=== PATIENT | female | born 1940 | race Caucasian/White ===

== ENCOUNTER 2017-02-12 09:20 | Emergency (ER) | payer MEDICARE, OTHER ==
[~2017-02-12] VITALS: Ht 152.4 cm; Wt 71.2 kg
[2017-02-12 09:27] VITALS: BP 189/90
[2017-02-12] MEDS ORDERED: METO25TA3 PO (09:36)
[2017-02-12] MEDS ORDERED: ORE25 PO (09:36)
[2017-02-12] MEDS ORDERED: MONT10TA35 PO (09:36)
[2017-02-12] MEDS ORDERED: ENAL20TA31 PO (09:36)
[2017-02-12] MEDS ORDERED: ATOR20TA40 PO (09:36)
[2017-02-12] MEDS ORDERED: METF850T37 PO (09:36)
--- NOTE | 2017-02-12 09:38 | NUR ---
Justino blum in ED - 02/12/17 at 0949 by [email or web address] Patient ambulated to bed 4 with family. RN evaluating patient at bedside.
--- NOTE | 2017-02-12 09:38 | NUR ---
Patient ambulated to bed 5 with family. RN evaluating patient at bedside.
--- NOTE | 2017-02-12 09:39 | NUR ---
PT AMBUALTE TO RESTROOM ASSISTED BY DAUGHTER FOR URINE SAMPLE.
--- NOTE | 2017-02-12 09:56 | NUR ---
PT BIB DAUGHTER FOR 06/06 RIGHT SIDED ABD PAIN STARTED YESTERDAY.PAIN IS AGGRAVATED BY BREATHING;DENIES V/D/FEVER. STS FEELS NAUSEA.HX HTN, DM, HIGH CHOLESTEROL. SKIN IS PINK/WARM/DRY; AAOX4 WITH EVEN AND STEADY GAIT; LUNGS CLEAR BL; HR EVEN AND REGULAR;DENIES ANY CP, SOB, OR COUGH AT THIS TIME; PATIENT STATES PAIN OF 10 AT THIS TIME; PATIENT POSITIONED FOR COMFORT; HOB ELEVATED; BEDRAILS UP X2; BED DOWN. ER MD WILL BE NOTIFY OF PT STATUS.
--- NOTE | 2017-02-12 10:01 | NUR ---
DR RENE AT BEDSIDE.
[2017-02-12] MEDS ORDERED: KETOROLAC 30 MG/ML VIAL IVP ONE (10:05)
--- NOTE | 2017-02-12 10:18 | NUR ---
US tech at bedside for exam.
[2017-02-12 10:24] LABS: BASOPHILS # (AUTO) 0.1 K/uL (0.00-0.22); BASOPHILS % (AUTO) 1.2 % (0.0-2.0); EOSINOPHILS # (AUTO) 0.2 K/uL (0-0.4); EOSINOPHILS % (AUTO) 1.8 % (0.0-4.0); HEMATOCRIT 40.7 % (36-48); HEMOGLOBIN 13.2 g/dL (12.0-16.0); LYMPHOCYTES # (AUTO) 1.9 K/uL (2.5-16.5); MEAN CORPUSCULAR HEMOGLOBIN 30 pg (27-31); MEAN CORPUSCULAR HGB CONC 32 g/dL (33-37); MEAN CORPUSCULAR VOLUME 93 fL (80-94); MONOCYTES # (AUTO) 0.6 K/uL (0.8-1.0); MONOCYTES % (AUTO) 5.5 % (1.7-9.3); NEUTROPHILS # (AUTO) 8.4 K/uL (1.8-7.7); NEUTROPHILS % (AUTO) 74.5 % (42.2-75.2); PLATELET COUNT (AUTO) 271 K/uL (140-450); RED BLOOD CELL COUNT(AUTO) 4.39 MIL/uL (4.20-5.40); RED CELL DISTRIBUTION WIDTH 12.1 % (11.6-13.7); WHITE BLOOD COUNT (AUTO) 11.2 K/uL (4.8-10.8)
[2017-02-12 10:33] LABS: ANION GAP 10.5 (8-16); CALCIUM 9.4 mg/dL (8.5-10.1); CARBON DIOXIDE 34.1 mmol/L (21-32); CHLORIDE 101 mmol/L (98-107); CREATININE 0.7 mg/dL (0.6-1.3); GLUCOSE 315 mg/dL (74-106); POTASSIUM 3.6 mmol/L (3.5-5.1); SODIUM SERUM 142 mmol/L (136-145); UREA NITROGEN, BLOOD 13 mg/dL (7-18)
[2017-02-12 10:39] LABS: ALANINE AMINOTRANSFERASE 25 U/L (12-78); ALBUMIN 3.5 g/dL (3.4-5.0); ALKALINE PHOSPHATASE 70 U/L (46-116); ASPARTATE AMINOTRANSFERASE 18 U/L (15-37); LIPASE 232 U/L (73-393); TOTAL BILIRUBIN 0.4 mg/dL (0.0-1.0)
[2017-02-12 10:44] LABS: APPEARANCE,URINE CLEAR (CLEAR); BILIRUBIN,URINE NEGATIVE (NEGATIVE); BLOOD, URINE NEGATIVE (NEGATIVE); COLOR,URINE YELLOW (YELLOW); LEUKOCYTE ESTERASE ,URINE NEGATIVE (NEGATIVE); NITRITE, URINE NEGATIVE (NEGATIVE); PROTEIN,URINE NEGATIVE (NEGATIVE); UGLUCOSE TRACE (NEGATIVE); UROBILINOGEN,URINE 0.2 EU/dL (0.2 - 1)
[2017-02-12] MEDS ORDERED: MORPHINE SULFATE 4 MG/ML SYR IVP ONE (10:55)
[2017-02-12] MEDS ORDERED: MORPHINE SULFATE 4 MG/ML SYR ONE (11:03)
--- NOTE | 2017-02-12 11:21 | NUR ---
PT RESTING ON BED;NO ACUTE DISTRESS NOTED;WILL CONTINUE TO MONITOR PT.
--- NOTE | 2017-02-12 11:32 | NUR ---
CALLED PT'S DAUGHTER (RANDY) THROUGH PHONE;INFORMED HER THAT HER MOTHER IS STABLE AND READY FOR DISCHARGE;SHE WILL COME AND PICK HER MOTHER HERE IN ER.
[2017-02-12 11:50] VITALS: BP 134/76
== END 2017-02-12 11:50 | disposition home or self-care (01) ==
LOC: MED 09:20
DX: K80.80 Other cholelithiasis without obstruction (principal); E11.9 Type 2 diabetes mellitus without complications; I10 Essential (primary) hypertension
CPT/HCPCS: 36415; 76705; 80053; 81003; 82948; 83690; 85025; 96374; 96375; 99285; J1885; J2270; Q0092

== ENCOUNTER 2023-04-28 03:45 | Inpatient (IN) | payer OTHER, MEDICARE ==
[~2023-04-28] VITALS: Ht 157.5 cm; Wt 72.1 kg
[2023-04-28] VITALS (7 sets, daily range): BP systolic 107–116; BP diastolic 57–68; PULSE 73–115; RESP 16–24; TEMP 96.9–98.5; O2SAT 93–100
[~2023-04-28 03:45] MED LIST: ATOR20TA40 PO; ENAL20TA99 PO; HYDR25TA33 PO; METF-350 PO; METO25TA14 PO; MONT-72 PO
[2023-04-28] MEDS ORDERED: NACL 0.9% 1,000 ML IV ONE (04:00)
[2023-04-28] MEDS ORDERED: ACETAMINOPHEN EXTRA STRENGTH 500 MG TAB PO ONE (04:00)
[2023-04-28 04:25] LABS: BASOPHILS % (AUTO) 0.2 % (0.0-2.0); HEMATOCRIT 43.5 % (36-48); HEMOGLOBIN 14.6 g/dL (12.0-16.0); LYMPHOCYTES # (AUTO) 0.6 K/uL (2.5-16.5); MEAN CORPUSCULAR HEMOGLOBIN 32 pg (27-31); MEAN CORPUSCULAR HGB CONC 34 g/dL (33-37); MEAN CORPUSCULAR VOLUME 94.5 fL (80-94); MONOCYTES # (AUTO) 0.8 K/uL (0.8-1.0); MONOCYTES % (AUTO) 4.1 % (1.7-9.3); NEUTROPHILS # (AUTO) 18.2 K/uL (1.8-7.7); NEUTROPHILS % (AUTO) 92.7 % (42.2-75.2); PLATELET COUNT (AUTO) 120 K/uL (140-450); RED CELL DISTRIBUTION WIDTH 13.3 % (11.6-13.7); WHITE BLOOD COUNT (AUTO) 19.7 K/uL (4.8-10.8)
[2023-04-28] MEDS ORDERED: PIPERACILLIN/TAZOBACTAM 3.375 GM in DEXTROSE 5% 50 ML IV ONE (04:30)
[2023-04-28] MEDS ORDERED: VANCOMYCIN 1,000 MG in DEXTROSE 5% 250 ML IV ONE (04:30)
[2023-04-28 04:49] LABS: ANION GAP 13.6 (8-16); CARBON DIOXIDE 31.6 mmol/L (21-32); CHLORIDE 85 mmol/L (98-107); POTASSIUM 3.2 mmol/L (3.5-5.1); SODIUM SERUM 127 mmol/L (136-145)
[2023-04-28 04:50] LABS: CALCIUM 8.3 mg/dL (8.5-10.1); CREATININE 1.7 mg/dL (0.6-1.3)
[2023-04-28 04:51] LABS: ALBUMIN 2.6 g/dL (3.4-5.0)
[2023-04-28 04:54] LABS: LACTIC ACID 3.9 mmol/L (0.4-2.0)
[2023-04-28 04:55] LABS: GLUCOSE 465 mg/dL (74-106)
[2023-04-28 04:59] LABS: FLU A ANTIGEN negative (NEGATIVE); FLU B ANTIGEN NEGATIVE (NEGATIVE)
[2023-04-28 05:01] LABS: ALKALINE PHOSPHATASE 106 U/L (50-136); ASPARTATE AMINOTRANSFERASE 52 U/L (15-37); TOTAL BILIRUBIN 0.9 mg/dL (0.0-1.0); TOTAL PROTEIN, SERUM 7.6 g/dL (6.4-8.2)
[2023-04-28] MEDS ORDERED: POTASSIUM CHLORIDE 10 MEQ TABER PO ONE (05:05)
[2023-04-28 05:14] LABS: UREA NITROGEN, BLOOD 23 mg/dL (7-18)
[2023-04-28 05:15] LABS: ALANINE AMINOTRANSFERASE 34 U/L (12-78)
[2023-04-28] MEDS ORDERED: ASPIRIN 81 MG TAB.CHEW PO ONE (05:30)
[2023-04-28] MEDS ORDERED: PIPERACILLIN/TAZOBACTAM 3.375 GM VIAL IV ONE (05:34)
[2023-04-28] MEDS ORDERED: KCL 20 MEQ IN 100 mL PREMIX 100 ML IV ONE (05:35)
[2023-04-28] MEDS ORDERED: DOCUSATE SODIUM 100 MG GELCAP PO PRN (05:40)
[2023-04-28] MEDS ORDERED: guaiFENesin DM 200/20 MG-10 ML 10 ML UDC PO PRN (05:40)
[2023-04-28] MEDS ORDERED: ONDANSETRON 4 MG/2 ML VIAL IM/IVP PRN (05:40)
[2023-04-28] MEDS ORDERED: ACETAMINOPHEN 325 MG TAB PO PRN (05:40)
[2023-04-28] MEDS ORDERED: CRUSHER, PILL MC ONE (05:47)
[2023-04-28 05:54] LABS: INR 1.07 (0.8-1.2); PARTIAL THROMBOPLASTIN TIME 32.5 secs (22-35.6); PROTHROMBIN TIME 11.2 secs (10.8-13.4)
[2023-04-28] MEDS ORDERED: DEXTROSE 50% 50 ML SYR IVP PRN ×2 (05:55→12:50)
[2023-04-28] MEDS ORDERED: VANCOMYCIN 1,000 MG VIAL ONE (06:04)
[2023-04-28 06:09] LABS: APPEARANCE,URINE CLEAR (CLEAR); BILIRUBIN,URINE NEGATIVE (NEGATIVE); BLOOD, URINE 2+ (NEGATIVE); COLOR,URINE YELLOW (YELLOW); LEUKOCYTE ESTERASE ,URINE 1+ (NEGATIVE); NITRITE, URINE NEGATIVE (NEGATIVE); PROTEIN,URINE 2+ (NEGATIVE); UGLUCOSE 3+ (NEGATIVE); UROBILINOGEN,URINE 0.2 EU/dL (0.2 - 1)
[2023-04-28 06:26] LABS: BACTERIA,URINE 1+ /HPF (None Seen); RBC,URINE 0-5 /HPF (0-5); SQUAMOUS EPITHELIAL CELL,UR 0-3 (FEW) /LPF (0-3 (FEW))
[2023-04-28] MEDS: NACL 0.9% 1,000 ML IV SCH ×2 (06:45→21:56)
[2023-04-28] MEDS: BLOOD GLUCOSE MONITORING 1 DEV DEV FS SCH ×4 (07:34→20:44)
[2023-04-28] MEDS ORDERED: NACL 0.9% 1,000 ML IV SCH (07:35)
[2023-04-28] MEDS ORDERED: HYDR-133 PO (07:45)
[2023-04-28] MEDS ORDERED: ATOR20TA PO (07:45)
[2023-04-28] MEDS ORDERED: APIX5TAB PO (07:45)
[2023-04-28] MEDS ORDERED: INSU100S45 SUBQ (07:47)
[2023-04-28 08:54] LABS: BLOOD GAS PH 7.437 (7.35-7.45)
[2023-04-28 08:55] LABS: BLOOD GAS HCO3 25.1 mmol/L (22-26); BLOOD GAS O2 SAT% 97.1 % (92.0-98.5); BLOOD GAS PO2 89.6 mmHg (75-100)
[2023-04-28] MEDS ORDERED: APIXABAN 2.5 MG TAB PO SCH ×2 (09:00→17:00)
[2023-04-28] MEDS: VANCOMYCIN PER PHARMACY MC SCH (09:00)
[2023-04-28] MEDS: remdesivir COMMUNICATION ORDER 1 EA MISC MC SCH (09:00)
[2023-04-28] MEDS ORDERED: remdesivir CLINICAL MONITORING 1 EA MISC MC PRN (09:40)
[2023-04-28] MEDS: methylPREDNISolone SS 40 MG/ML VIAL IVP SCH (09:52)
[2023-04-28] MEDS: PANTOPRAZOLE 40 MG TABEC PO SCH (09:53)
[2023-04-28] MEDS: INSULIN LANTUS 100 UNITS/ML 10 ML VIAL SUBQ SCH (10:09)
[2023-04-28] MEDS ORDERED: REMDESIVIR. 200 MG in NACL 0.9% 100 ML IV SCH (11:00)
[2023-04-28] MEDS: PIPERACILLIN/TAZOBACTAM 2.25 GM in DEXTROSE 5% 50 ML IV SCH ×3 (12:49→23:48)
[2023-04-28] MEDS ORDERED: PIPERACILLIN/TAZOBACTAM 3.375 GM in DEXTROSE 5% 50 ML IV SCH (13:00)
[2023-04-28] MEDS: INSULIN LISPRO 100 UNITS/ML VIAL SUBQ SCH ×2 (13:11→18:13)
[2023-04-28] MEDS ORDERED: BLOOD GLUCOSE MONITORING 1 DEV DEV FS SCH (16:30)
[2023-04-28] MEDS: POTASSIUM CHLORIDE 10 MEQ TABER PO PRN (21:01)
[2023-04-28] MEDS: ZOLPIDEM 5 MG TAB PO PRN (21:05)
[2023-04-29] VITALS (9 sets, daily range): BP systolic 109–147; BP diastolic 64–91; PULSE 69–89; RESP 18–20; TEMP 96.9–97.9; O2SAT 94–100
[2023-04-29] MEDS: PIPERACILLIN/TAZOBACTAM 2.25 GM in DEXTROSE 5% 50 ML IV SCH ×4 (05:36→23:27)
[2023-04-29] MEDS ORDERED: APIXABAN 2.5 MG TAB PO SCH (06:00)
[2023-04-29 06:45] LABS: BASOPHILS % (AUTO) 0.1 % (0.0-2.0); HEMATOCRIT 38.2 % (36-48); HEMOGLOBIN 12.9 g/dL (12.0-16.0); LYMPHOCYTES # (AUTO) 0.7 K/uL (2.5-16.5); LYMPHOCYTES % (AUTO) 3.6 % (20.5-51.1); MEAN CORPUSCULAR HEMOGLOBIN 31 pg (27-31); MEAN CORPUSCULAR HGB CONC 34 g/dL (33-37); MEAN CORPUSCULAR VOLUME 92.9 fL (80-94); MONOCYTES # (AUTO) 1.1 K/uL (0.8-1.0); NEUTROPHILS # (AUTO) 16.4 K/uL (1.8-7.7); NEUTROPHILS % (AUTO) 90.3 % (42.2-75.2); PLATELET COUNT (AUTO) 152 K/uL (140-450); RED BLOOD CELL COUNT(AUTO) 4.11 MIL/uL (4.20-5.40); RED CELL DISTRIBUTION WIDTH 13.3 % (11.6-13.7); WHITE BLOOD COUNT (AUTO) 18.2 K/uL (4.8-10.8)
[2023-04-29] MEDS: INSULIN LISPRO 100 UNITS/ML VIAL SUBQ SCH ×3 (06:50→17:04)
[2023-04-29] MEDS: BLOOD GLUCOSE MONITORING 1 DEV DEV FS SCH ×4 (06:54→20:38)
[2023-04-29 07:02] LABS: ALANINE AMINOTRANSFERASE 29 U/L (12-78); ALKALINE PHOSPHATASE 84 U/L (50-136); ANION GAP 14.2 (8-16); ASPARTATE AMINOTRANSFERASE 32 U/L (15-37); CALCIUM 7.8 mg/dL (8.5-10.1); CARBON DIOXIDE 27.3 mmol/L (21-32); CHLORIDE 93 mmol/L (98-107); CREATININE 1.5 mg/dL (0.6-1.3); GLUCOSE 381 mg/dL (74-106); POTASSIUM 3.5 mmol/L (3.5-5.1); SODIUM SERUM 131 mmol/L (136-145); TOTAL BILIRUBIN 0.5 mg/dL (0.0-1.0); TOTAL PROTEIN, SERUM 6.5 g/dL (6.4-8.2); UREA NITROGEN, BLOOD 30 mg/dL (7-18)
[2023-04-29] MEDS: PANTOPRAZOLE 40 MG TABEC PO SCH (08:54)
[2023-04-29] MEDS: methylPREDNISolone SS 40 MG/ML VIAL IVP SCH (08:54)
[2023-04-29] MEDS: INSULIN LANTUS 100 UNITS/ML 10 ML VIAL SUBQ SCH (08:56)
[2023-04-29] MEDS: remdesivir COMMUNICATION ORDER 1 EA MISC MC SCH (09:00)
[2023-04-29] MEDS: VANCOMYCIN PER PHARMACY MC SCH (09:00)
[2023-04-29] MEDS ORDERED: VANCOMYCIN 1.25GM PREMIX 250 ML IV SCH (09:00)
[2023-04-29] MEDS: REMDESIVIR. 100 MG in NACL 0.9% 100 ML IV SCH (11:57)
[2023-04-29] MEDS: NACL 0.9% 1,000 ML IV SCH (16:50)
[2023-04-29] MEDS: APIXABAN 2.5 MG TAB PO SCH (20:31)
[2023-04-29] MEDS: HYDROcodone/APAP 7.5/325 MG 1 TAB PO PRN (20:59)
[2023-04-30] VITALS (7 sets, daily range): BP systolic 126–172; BP diastolic 78–93; PULSE 78–90; RESP 18–20; TEMP 96.8–98.6; O2SAT 95–97
[2023-04-30] MEDS: ZOLPIDEM 5 MG TAB PO PRN (00:56)
[2023-04-30] MEDS: PIPERACILLIN/TAZOBACTAM 2.25 GM in DEXTROSE 5% 50 ML IV SCH ×3 (05:55→17:55)
[2023-04-30] MEDS: INSULIN LISPRO 100 UNITS/ML VIAL SUBQ SCH ×3 (06:44→18:06)
[2023-04-30] MEDS: BLOOD GLUCOSE MONITORING 1 DEV DEV FS SCH ×4 (06:45→20:43)
[2023-04-30 08:18] LABS: HEMATOCRIT 39.6 % (36-48); HEMOGLOBIN 13.3 g/dL (12.0-16.0); MEAN CORPUSCULAR HEMOGLOBIN 32 pg (27-31); MEAN CORPUSCULAR HGB CONC 34 g/dL (33-37); MEAN CORPUSCULAR VOLUME 93.7 fL (80-94); PLATELET COUNT (AUTO) 211 K/uL (140-450); RED BLOOD CELL COUNT(AUTO) 4.23 MIL/uL (4.20-5.40); RED CELL DISTRIBUTION WIDTH 13.3 % (11.6-13.7); WHITE BLOOD COUNT (AUTO) 20.6 K/uL (4.8-10.8)
[2023-04-30 08:34] LABS: ALANINE AMINOTRANSFERASE 28 U/L (12-78); ALBUMIN 1.9 g/dL (3.4-5.0); ALKALINE PHOSPHATASE 87 U/L (50-136); ANION GAP 11.9 (8-16); ASPARTATE AMINOTRANSFERASE 35 U/L (15-37); CALCIUM 8.3 mg/dL (8.5-10.1); CARBON DIOXIDE 29.3 mmol/L (21-32); CHLORIDE 97 mmol/L (98-107); CREATININE 1.3 mg/dL (0.6-1.3); GLUCOSE 277 mg/dL (74-106); POTASSIUM 3.2 mmol/L (3.5-5.1); SODIUM SERUM 135 mmol/L (136-145); TOTAL BILIRUBIN 0.4 mg/dL (0.0-1.0); TOTAL PROTEIN, SERUM 6.5 g/dL (6.4-8.2); UREA NITROGEN, BLOOD 38 mg/dL (7-18)
[2023-04-30 08:45] LABS: BASOPHILS % (MANUAL) 0 % (0-2); BLASTS, MANUAL % 0 % (0-0); EOSINOPHILS % (MANUAL) 0 % (0-4); LYMPHOCYTES % (MANUAL) 6 % (20-46); METAMYELOCYTES % 0 % (0-0); MONOCYTES % (MANUAL) 3 % (5-12); MYELOCYTES % 0 % (0-0); PROMYELOCYTES % 0 % (0-0)
[2023-04-30] MEDS ORDERED: APIXABAN 2.5 MG TAB PO SCH (09:00)
[2023-04-30] MEDS: PANTOPRAZOLE 40 MG TABEC PO SCH (09:22)
[2023-04-30] MEDS: APIXABAN 2.5 MG TAB PO SCH ×2 (09:23→20:55)
[2023-04-30] MEDS: methylPREDNISolone SS 40 MG/ML VIAL IVP SCH (09:23)
[2023-04-30] MEDS: VANCOMYCIN PER PHARMACY MC SCH (09:24)
[2023-04-30] MEDS: remdesivir COMMUNICATION ORDER 1 EA MISC MC SCH (09:24)
[2023-04-30] MEDS: INSULIN LANTUS 100 UNITS/ML 10 ML VIAL SUBQ SCH (09:25)
[2023-04-30] MEDS: metFORMIN 850 MG TAB PO SCH ×2 (09:28→17:55)
[2023-04-30] MEDS: NACL 0.9% 1,000 ML IV SCH (09:29)
[2023-04-30] MEDS ORDERED: TRIAMTERENE/HCTZ 37.5/25 MG 1 TAB PO SCH (10:11)
[2023-04-30] MEDS: TRIAMTERENE/HCTZ 37.5/25 MG 1 TAB PO SCH (10:49)
[2023-04-30] MEDS ORDERED: VANCOMYCIN 750 MG in DEXTROSE 5% 250 ML IV SCH (12:00)
[2023-04-30] MEDS: REMDESIVIR. 100 MG in NACL 0.9% 100 ML IV SCH (12:28)
[2023-04-30] MEDS: INSULIN LISPRO SLIDING SCALE 100 UNITS/ML VIAL SUBQ PRN ×2 (18:08→21:06)
[2023-04-30] MEDS: POTASSIUM CHLORIDE 10 MEQ TABER PO PRN (19:16)
[2023-04-30] MEDS: ATORVASTATIN 20 MG TAB PO SCH (20:44)
[2023-05-01] VITALS (9 sets, daily range): BP systolic 142–169; BP diastolic 66–103; PULSE 68–97; RESP 16–20; TEMP 97.1–98.8; O2SAT 94–99
[2023-05-01] MEDS: NACL 0.9% 1,000 ML IV SCH ×2 (00:20→17:10)
[2023-05-01] MEDS: PIPERACILLIN/TAZOBACTAM 2.25 GM in DEXTROSE 5% 50 ML IV SCH ×5 (01:00→23:49)
[2023-05-01 06:36] LABS: BASOPHILS % (AUTO) 0.1 % (0.0-2.0); HEMATOCRIT 41.1 % (36-48); HEMOGLOBIN 13.7 g/dL (12.0-16.0); LYMPHOCYTES # (AUTO) 1.1 K/uL (2.5-16.5); LYMPHOCYTES % (AUTO) 6.2 % (20.5-51.1); MEAN CORPUSCULAR HEMOGLOBIN 31 pg (27-31); MEAN CORPUSCULAR HGB CONC 33 g/dL (33-37); MEAN CORPUSCULAR VOLUME 94.1 fL (80-94); MONOCYTES # (AUTO) 1.1 K/uL (0.8-1.0); MONOCYTES % (AUTO) 6.5 % (1.7-9.3); NEUTROPHILS # (AUTO) 14.9 K/uL (1.8-7.7); NEUTROPHILS % (AUTO) 87.2 % (42.2-75.2); PLATELET COUNT (AUTO) 276 K/uL (140-450); RED BLOOD CELL COUNT(AUTO) 4.36 MIL/uL (4.20-5.40); RED CELL DISTRIBUTION WIDTH 13.8 % (11.6-13.7); WHITE BLOOD COUNT (AUTO) 17.1 K/uL (4.8-10.8)
[2023-05-01 06:50] LABS: ALANINE AMINOTRANSFERASE 19 U/L (12-78); ALBUMIN 1.9 g/dL (3.4-5.0); ALKALINE PHOSPHATASE 76 U/L (50-136); ANION GAP 12.6 (8-16); ASPARTATE AMINOTRANSFERASE 22 U/L (15-37); CALCIUM 8.5 mg/dL (8.5-10.1); CARBON DIOXIDE 29.2 mmol/L (21-32); CHLORIDE 103 mmol/L (98-107); CREATININE 1.3 mg/dL (0.6-1.3); GLUCOSE 96 mg/dL (74-106); POTASSIUM 3.8 mmol/L (3.5-5.1); SODIUM SERUM 141 mmol/L (136-145); TOTAL BILIRUBIN 0.4 mg/dL (0.0-1.0); TOTAL PROTEIN, SERUM 6.3 g/dL (6.4-8.2); UREA NITROGEN, BLOOD 34 mg/dL (7-18)
[2023-05-01] MEDS: BLOOD GLUCOSE MONITORING 1 DEV DEV FS SCH ×4 (07:05→20:48)
[2023-05-01] MEDS: INSULIN LISPRO 100 UNITS/ML VIAL SUBQ SCH ×3 (07:30→17:17)
[2023-05-01] MEDS: INSULIN LANTUS 100 UNITS/ML 10 ML VIAL SUBQ SCH (09:00)
[2023-05-01] MEDS: APIXABAN 2.5 MG TAB PO SCH ×2 (09:40→20:46)
[2023-05-01] MEDS: metFORMIN 850 MG TAB PO SCH ×2 (09:43→16:57)
[2023-05-01] MEDS: HYDROcodone/APAP 7.5/325 MG 1 TAB PO PRN (09:43)
[2023-05-01] MEDS: PANTOPRAZOLE 40 MG TABEC PO SCH (09:43)
[2023-05-01] MEDS: VANCOMYCIN PER PHARMACY MC SCH (09:44)
[2023-05-01] MEDS: methylPREDNISolone SS 40 MG/ML VIAL IVP SCH (09:44)
[2023-05-01] MEDS: remdesivir COMMUNICATION ORDER 1 EA MISC MC SCH (09:44)
[2023-05-01] MEDS: TRIAMTERENE/HCTZ 37.5/25 MG 1 TAB PO SCH (09:44)
[2023-05-01] MEDS: REMDESIVIR. 100 MG in NACL 0.9% 100 ML IV SCH (11:34)
[2023-05-01] MEDS: INSULIN LISPRO SLIDING SCALE 100 UNITS/ML VIAL SUBQ PRN ×3 (11:49→20:47)
[2023-05-01] MEDS: ATORVASTATIN 20 MG TAB PO SCH (20:42)
[2023-05-02] MEDS: NACL 0.9% 1,000 ML IV SCH (03:59)
[2023-05-02 04:00] VITALS: BP 141/91; PULSE 74; RESP 18; TEMP 96.7; O2SAT 100
[2023-05-02] MEDS: PIPERACILLIN/TAZOBACTAM 2.25 GM in DEXTROSE 5% 50 ML IV SCH (05:09)
[2023-05-02 06:24] LABS: HEMATOCRIT 42.3 % (36-48); MEAN CORPUSCULAR HEMOGLOBIN 31 pg (27-31); MEAN CORPUSCULAR HGB CONC 33 g/dL (33-37); MEAN CORPUSCULAR VOLUME 94.6 fL (80-94); PLATELET COUNT (AUTO) 328 K/uL (140-450); RED BLOOD CELL COUNT(AUTO) 4.46 MIL/uL (4.20-5.40); RED CELL DISTRIBUTION WIDTH 13.6 % (11.6-13.7); WHITE BLOOD COUNT (AUTO) 15.7 K/uL (4.8-10.8)
[2023-05-02] MEDS: INSULIN LISPRO 100 UNITS/ML VIAL SUBQ SCH ×2 (06:39→12:21)
[2023-05-02] MEDS: BLOOD GLUCOSE MONITORING 1 DEV DEV FS SCH ×2 (06:40→11:30)
[2023-05-02 06:51] LABS: ALANINE AMINOTRANSFERASE 18 U/L (12-78); ALBUMIN 1.9 g/dL (3.4-5.0); ALKALINE PHOSPHATASE 82 U/L (50-136); ASPARTATE AMINOTRANSFERASE 24 U/L (15-37); CALCIUM 8.5 mg/dL (8.5-10.1); CARBON DIOXIDE 28.3 mmol/L (21-32); CHLORIDE 102 mmol/L (98-107); CREATININE 1.2 mg/dL (0.6-1.3); GLUCOSE 139 mg/dL (74-106); POTASSIUM 3.3 mmol/L (3.5-5.1); SODIUM SERUM 141 mmol/L (136-145); TOTAL BILIRUBIN 0.5 mg/dL (0.0-1.0); TOTAL PROTEIN, SERUM 6.4 g/dL (6.4-8.2); UREA NITROGEN, BLOOD 29 mg/dL (7-18)
[2023-05-02 08:00] VITALS: PULSE 85; RESP 18; TEMP 97.4; O2SAT 99
[2023-05-02 08:00] LABS: LYMPHOCYTES % (MANUAL) 8 % (20-46); MONOCYTES % (MANUAL) 2 % (5-12)
[2023-05-02] MEDS ORDERED: VANCOMYCIN 750 MG in DEXTROSE 5% 250 ML IV SCH (08:00)
[2023-05-02] MEDS: methylPREDNISolone SS 40 MG/ML VIAL IVP SCH (08:46)
[2023-05-02] MEDS: metFORMIN 850 MG TAB PO SCH (08:46)
[2023-05-02] MEDS: PANTOPRAZOLE 40 MG TABEC PO SCH (08:49)
[2023-05-02] MEDS: APIXABAN 2.5 MG TAB PO SCH (08:49)
[2023-05-02] MEDS: INSULIN LANTUS 100 UNITS/ML 10 ML VIAL SUBQ SCH (08:51)
[2023-05-02] MEDS: TRIAMTERENE/HCTZ 37.5/25 MG 1 TAB PO SCH (08:58)
[2023-05-02] MEDS: HYDROcodone/APAP 7.5/325 MG 1 TAB PO PRN (09:10)
[2023-05-02] MEDS: VANCOMYCIN PER PHARMACY MC SCH (09:25)
[2023-05-02] MEDS: REMDESIVIR. 100 MG in NACL 0.9% 100 ML IV SCH (12:08)
[2023-05-02] MEDS: INSULIN LISPRO SLIDING SCALE 100 UNITS/ML VIAL SUBQ PRN (12:21)
[2023-05-02 14:03] VITALS: BP 139/70; PULSE 87; RESP 18; TEMP 97.5
== END 2023-05-02 15:05 | disposition home or self-care (01) | DRG 137 ==
LOC: MED 03:45 → MTU 05:43
PROVIDERS: ADMIT Student in an Organized Health Care Education/Training Program; ATTEND Student in an Organized Health Care Education/Training Program
PROC: XW033E5 Introduction of Remdesivir Anti-infective into Peripheral Vein, Percutaneous Approach, New Technology Group 5 (ICD-10-PCS; principal; 2023-05-02)
DX: U07.1 COVID-19 (principal); J96.00 Acute respiratory failure, unspecified whether with hypoxia or hypercapnia; J12.82 Pneumonia due to coronavirus disease 2019; I13.0 Hypertensive heart and chronic kidney disease with heart failure and stage 1 through stage 4 chronic kidney disease, or unspecified chronic kidney disease; I50.9 Heart failure, unspecified; E11.22 Type 2 diabetes mellitus with diabetic chronic kidney disease; R65.10 Systemic inflammatory response syndrome (SIRS) of non-infectious origin without acute organ dysfunction; I48.91 Unspecified atrial fibrillation; E11.65 Type 2 diabetes mellitus with hyperglycemia; N39.0 Urinary tract infection, site not specified; N18.9 Chronic kidney disease, unspecified; Z79.01 Long term (current) use of anticoagulants; Z79.899 Other long term (current) drug therapy
CPT/HCPCS: 36415; 36600; 71045; 80053; 80202; 81001; 82009; 82803; 82948; 83605; 83880; 84443; 84484; 85025; 85610; 85730; 87040; 87081; 87086; 92526; 93005; 94640; 96361; 96365; 96366; 96368; 99291; J0696; J1815; J2405; J2543; J2920; J3370; J3372; J3480; J7060; Q0092

== ENCOUNTER 2023-05-22 18:21 | Emergency (ER) | payer MEDICARE, OTHER ==
[~2023-05-22] VITALS: Ht 157.5 cm; Wt 72.6 kg
[~2023-05-22 18:21] MED LIST changes: +APIX5TAB PO; +ATOR20TA PO; -ATOR20TA40 PO; -ENAL20TA99 PO; +HYDR-133 PO; -HYDR25TA33 PO; +INSU100S45 SUBQ; -METO25TA14 PO; -MONT-72 PO
[2023-05-22 18:24] VITALS: BP 135/91; PULSE 96; RESP 20; TEMP 97.7; O2SAT 95
[2023-05-22] MEDS ORDERED: NACL 0.9% 500 ML IV ONE (18:30)
[2023-05-22 18:49] LABS: BASOPHILS # (AUTO) 0.1 K/uL (0.00-0.22); BASOPHILS % (AUTO) 0.8 % (0.0-2.0); EOSINOPHILS # (AUTO) 0.4 K/uL (0-0.4); EOSINOPHILS % (AUTO) 3.5 % (0.0-4.0); HEMATOCRIT 42.6 % (36-48); LYMPHOCYTES # (AUTO) 2.9 K/uL (2.5-16.5); LYMPHOCYTES % (AUTO) 25.6 % (20.5-51.1); MEAN CORPUSCULAR HEMOGLOBIN 32 pg (27-31); MEAN CORPUSCULAR HGB CONC 33 g/dL (33-37); MEAN CORPUSCULAR VOLUME 96.1 fL (80-94); MONOCYTES # (AUTO) 1.4 K/uL (0.8-1.0); MONOCYTES % (AUTO) 12.4 % (1.7-9.3); NEUTROPHILS # (AUTO) 6.6 K/uL (1.8-7.7); NEUTROPHILS % (AUTO) 57.7 % (42.2-75.2); PLATELET COUNT (AUTO) 337 K/uL (140-450); RED BLOOD CELL COUNT(AUTO) 4.43 MIL/uL (4.20-5.40); RED CELL DISTRIBUTION WIDTH 14.2 % (11.6-13.7); WHITE BLOOD COUNT (AUTO) 11.4 K/uL (4.8-10.8)
[2023-05-22] MEDS ORDERED: PROTHROMBIN COMPLEX HUMAN 500 UNITS KIT IV ONE ×2 (19:40→19:55)
[2023-05-22 19:59] LABS: LACTIC ACID 4.5 mmol/L (0.4-2.0)
[2023-05-22 20:17] LABS: INR 1.04 (0.8-1.2); PROTHROMBIN TIME 10.9 secs (10.8-13.4)
[2023-05-22 20:18] LABS: PARTIAL THROMBOPLASTIN TIME 32.3 secs (22-35.6)
[2023-05-22] MEDS ORDERED: NICARDIPINE HYDROCHLORIDE 25 MG in NACL 0.9% 240 ML IV ONE (20:30)
[2023-05-22] MEDS ORDERED: hydrALAZINE 20 MG/ML VIAL IVP ONE (20:35)
[2023-05-22 20:57] LABS: ALANINE AMINOTRANSFERASE 29 U/L (12-78); ALBUMIN 2.8 g/dL (3.4-5.0); ALKALINE PHOSPHATASE 106 U/L (50-136); ANION GAP 16.9 (8-16); ASPARTATE AMINOTRANSFERASE 52 U/L (15-37); CALCIUM 9.2 mg/dL (8.5-10.1); CARBON DIOXIDE 26.9 mmol/L (21-32); CHLORIDE 96 mmol/L (98-107); CREATININE 1.2 mg/dL (0.6-1.3); GLUCOSE 211 mg/dL (74-106); POTASSIUM 3.8 mmol/L (3.5-5.1); SODIUM SERUM 136 mmol/L (136-145); TOTAL BILIRUBIN 0.5 mg/dL (0.0-1.0); TOTAL PROTEIN, SERUM 8.3 g/dL (6.4-8.2); UREA NITROGEN, BLOOD 9 mg/dL (7-18)
[2023-05-22] MEDS ORDERED: PHYTONADIONE 10 MG in NACL 0.9% 50 ML IV ONE (21:50)
[2023-05-22] MEDS ORDERED: NICARDIPINE HYDROCHLORIDE 2.5 MG/ML VIAL IV ONE (21:53)
[2023-05-22 22:00] VITALS: BP 162/84; PULSE 100; RESP 26; TEMP 98; O2SAT 98
[2023-05-22] MEDS ORDERED: PIPERACILLIN/TAZOBACTAM 3.375 GM VIAL IV ONE (22:00)
[2023-05-22] MEDS ORDERED: PIPERACILLIN/TAZOBACTAM 3.375 GM in DEXTROSE 5% 50 ML IV ONE (22:00)
[2023-05-22] MEDS ORDERED: PHYTONADIONE 10 MG/ML AMP ONE (22:01)
[2023-05-22 22:42] LABS: APPEARANCE,URINE CLEAR (CLEAR); BILIRUBIN,URINE NEGATIVE (NEGATIVE); BLOOD, URINE TRACE-I (NEGATIVE); COLOR,URINE YELLOW (YELLOW); LEUKOCYTE ESTERASE ,URINE 2+ (NEGATIVE); NITRITE, URINE NEGATIVE (NEGATIVE); PROTEIN,URINE NEGATIVE (NEGATIVE); UGLUCOSE NEGATIVE (NEGATIVE); UROBILINOGEN,URINE 0.2 EU/dL (0.2 - 1)
[2023-05-22 22:46] LABS: BACTERIA,URINE 3+ /HPF (None Seen); MUCUS,URINE 2+ /LPF (None Seen); SQUAMOUS EPITHELIAL CELL,UR 0-3 (FEW) /LPF (0-3 (FEW)); TRICHOMONAS,URINE None Seen /HPF (None Seen); WBC,URINE 20-60 /HPF (0-5); WHITE BLOOD CELL CASTS,URINE 0-3 /LPF (None Seen); YEAST,URINE None Seen /HPF (None Seen)
== END 2023-05-22 22:50 | disposition short-term general hospital (02) ==
LOC: MED 18:21
DX: I61.9 Nontraumatic intracerebral hemorrhage, unspecified (principal); R41.82 Altered mental status, unspecified; R47.01 Aphasia; R77.8 Other specified abnormalities of plasma proteins; N39.0 Urinary tract infection, site not specified; I11.9 Hypertensive heart disease without heart failure; E11.9 Type 2 diabetes mellitus without complications; Z79.4 Long term (current) use of insulin; Z79.899 Other long term (current) drug therapy
CPT/HCPCS: 36415; 70450; 70496; 70498; 71045; 80053; 81001; 83605; 84484; 85025; 85610; 85730; 86886; 86900; 86901; 87040; 87086; 96361; 96365; 96375; 99291; C9132; J0360; J2543; J3430; J7030; Q0092